=== PATIENT | female | born 1940 | race Caucasian/White ===

== ENCOUNTER 2018-02-22 18:20 | Observation (INO) | payer MEDICARE, BC ==
[2018-02-22] MEDS ORDERED: Albuterol/Ipratropium 3.0-0.5 MG/3 ML Neb Soln NEB ONE (18:55)
[2018-02-22] MEDS ORDERED: methylPREDNISolone Sodium Succinate 125 MG/2 ML SDV IVPUSH ONE (19:22)
[2018-02-22 19:45] LABS: CHLORIDE,CL 99 mmol/L (98-107); SODIUM,NA 134 mmol/L (136-145)
[2018-02-22] MEDS ORDERED: Furosemide 40 MG/4 ML VIAL IV ONE (20:38)
--- NOTE | 2018-02-22 21:14 | EDM.PDOC ---
ED HPI GENERAL MEDICAL PROBLEM - General Chief Complaint: Respiratory Problem Stated Complaint: shortness of breath Time Seen by Provider: 02/22/18 18:41 Source of Information: Reports: Patient History Limitations: Reports: No Limitations - History of Present Illness INITIAL COMMENTS - FREE TEXT/NARRATIVE: Patient brought in with complaints of shortness of breath that started earlier today. SHe has history of a-fib, copd, chf, htn, hypothroidism. She denies chest pain, arm numbness or tingling. No prior [place] or CVA. She denies blood to urine or stool. No headache, no abdominal pain, denies any other complaints today. She gets more short of breath with walking. She smokes 1/2 ppd and has for 60 years. Onset: Today, Sudden Duration: Intermittent Location: Reports: Chest Severity: Moderate Context: Reports: Activity Associated Symptoms: Reports: Shortness of Breath - Related Data Allergies Allergy/AdvReac Type Severity Reaction Status Date / Time naproxen [From Aleve] Allergy Cannot Verified 02/22/18 19:00 Remember Penicillins Allergy Rash Verified 02/22/18 19:00 Sulfa (Sulfonamide Allergy Cannot Verified 02/22/18 19:00 Antibiotics) Remember Home Meds: Home Meds Albuterol [Ventolin HFA] 2 puff INH Q4H PRN 02/22/18 [History] Beclomethasone Dipropionate [Qvar] 2 puff INH BID 02/22/18 [History] Chlorpheniramine Maleate [Chlor-Trimeton] 4 mg PO Q6HR PRN 02/22/18 [History] Cholecalciferol (Vitamin D3) [Vitamin D3] 2,000 unit PO DAILY 02/22/18 [History] Dabigatran Etexilate Mesylate [Pradaxa] 1 cap PO BID 02/22/18 [History] Hydrochlorothiazide 1 tab PO DAILY 02/22/18 [History] Levothyroxine 200 mcg PO ACBREAKFAST 02/22/18 [History] Lisinopril 1 tab PO DAILY 02/22/18 [History] Metoprolol Tartrate 1 tab PO BID 02/22/18 [History] Multivitamins [Tab-A-Mike] 1 tab PO DAILY 02/22/18 [History] Omeprazole 1 cap PO DAILY 02/22/18 [History] Sertraline HCl 25 mg PO DAILY 02/22/18 [History] Simvastatin [Zocor] 10 mg PO BEDTIME 02/22/18 [History] Tiotropium [Spiriva Handihaler] 18 mcg INH DAILY 02/22/18 [History] Past Medical History Cardiovascular History: Reports: Afib, CAD, Heart Valve Replacement, High Cholesterol, Other (See Below) Other Cardiovascular History: Valvular heart disease Respiratory History: Reports: COPD Gastrointestinal History: Reports: Cholelithiasis, GERD, Other (See Below) Other Gastrointestinal History: dysphagia, rectocele Musculoskeletal History: Reports: Other (See Below) Other Musculoskeletal History: Arthralgia of foot Psychiatric History: Reports: Depression Endocrine/Metabolic History: Reports: Hypothyroidism Hematologic History: Reports: B12 Deficiency Oncologic (Cancer) History: Reports: Bladder, Other (See Below) Other Oncologic History: Anal skin Social & Family History - Tobacco Use Smoking Status *Q: Current Every Day Smoker Years of Tobacco use: 60 Packs/Tins Daily: 0.4 - Alcohol Use Days Per Week of Alcohol Use: 7 Number of Drinks Per Day: 3 Total Drinks Per Week: 21 - Recreational Drug Use Recreational Drug Use: No ED ROS GENERAL - Review of Systems Review Of Systems: See Below Constitutional: Reports: No Symptoms HEENT: Reports: No Symptoms Respiratory: Reports: Shortness of Breath Cardiovascular: Reports: No Symptoms Endocrine: Reports: No Symptoms GI/Abdominal: Reports: No Symptoms : Reports: No Symptoms Musculoskeletal: Reports: No Symptoms Skin: Reports: No Symptoms Neurological: Reports: No Symptoms Psychiatric: Reports: No Symptoms Hematologic/Lymphatic: Reports: No Symptoms Immunologic: Reports: No Symptoms ED EXAM, GENERAL - Physical Exam Exam: See Below Free Text/Narrative:: PLEASE USE ER NOTE FOR ADMISSION HISTORY AND PHYSICAL Exam Limited By: No Limitations General Appearance: Alert, WD/WN, No Apparent Distress Eye Exam: Bilateral Eye: EOMI, PERRL Ears: Normal TMs Nose: Normal Inspection, Normal Mucosa, No Blood Throat/Mouth: Normal Inspection, Normal Lips, Normal Teeth, Normal Gums, Normal Oropharynx, Normal Voice, No Airway Compromise Head: Atraumatic, Normocephalic Neck: Normal Inspection, Supple, Non-Tender, Full Range of Motion Respiratory/Chest: No Respiratory Distress, Lungs Clear, Normal Breath Sounds, No Accessory Muscle Use, Chest Non-Tender Cardiovascular: Normal Peripheral Pulses, Regular Rate, Rhythm, No Edema, No Gallop, No JVD, No Murmur, No Rub GI/Abdominal: Normal Bowel Sounds, Soft, Non-Tender, No Organomegaly, No Distention, No Abnormal Bruit, No Mass Back Exam: Normal Inspection, Full Range of Motion, NT Extremities: Normal Inspection, Normal Range of Motion, Non-Tender, Normal Capillary Refill, No Pedal Edema Neurological: Alert, Oriented, CN II-XII Intact, Normal Cognition, Normal Gait, Normal Reflexes, No Motor/Sensory Deficits Psychiatric: Normal Affect, Normal Mood Skin Exam: Warm, Dry, Intact, Normal Color, No Rash Lymphatic: No Adenopathy Course - Vital Signs Last Recorded V/S: Last Vital Signs Temp 36.8 C 02/22/18 21:53 Pulse 92 02/22/18 21:53 Resp 18 02/22/18 21:53 BP 176/90 H 02/22/18 21:53 Pulse Ox 97 02/22/18 21:53 - Orders/Labs/Meds Orders: Active Orders 24 hr Category Date Time Status Patient Status [ADT] Routine ADT 02/22/18 21:19 Active EKG Documentation Completion [RC] ROUTINE Care 02/22/18 18:42 Active RT Aerosol Therapy [RC] ASDIRECTED Care 02/22/18 18:55 Active Chest 1V Frontal [CR] Stat Exams 02/22/18 18:42 Taken Labs: Laboratory Tests 02/22/18 02/22/18 02/22/18 Range/Units 19:09 19:09 19:09 WBC 10.5 H (4.0-10.0) x10^3/uL RBC 3.30 L (4.00-5.50) x10^6/uL Hgb 8.8 L (12.0-16.0) g/dL Hct 29.2 L (33.0-47.0) % MCV 88.5 (78.0-93.0) fL MCH 26.7 (26.0-32.0) pg MCHC 30.1 L (32.0-36.0) g/dL RDW Coeff of Radha 13.7 (10.0-15.0) % Plt Count 395 (130-400) x10^3/uL Neut % (Auto) 78.1 (50.0-80.0) % Lymph % (Auto) 9.9 L (25.0-50.0) % [place] % (Auto) 9.0 (2.0-11.0) % Eos % (Auto) 2.7 (0.0-4.0) % Baso % (Auto) 0.3 (0.2-1.2) % PT 13.5 H (9.8-11.8) SEC INR 1.3 L (2.0-3.5) Sodium 134 L (136-145) mmol/L Potassium 3.0 L (3.5-5.1) mmol/L Chloride 99 (98-107) mmol/L Carbon Dioxide 26 (21-32) mmol/L Anion Gap 12.0 BUN 15 (7-18) mg/dL Creatinine 0.9 (0.55-1.02) mg/dL Est Cr Clr Drug Dosing 40.74 mL/min Estimated GFR (MDRD) > 60 Glucose 112 H (74-106) mg/dL Calcium 8.5 (8.5-10.1) mg/dL Corrected Calcium 8.82 (8.5-10.1) mg/dL Total Bilirubin 0.4 (0.2-1.0) mg/dL AST 11 L (15-37) U/L ALT 13 L (14-59) U/L Alkaline Phosphatase 94 (46-116) U/L Troponin I < 0.017 (<=0.056) ng/mL NT-Pro-B Natriuret Pep 4358 H (<=450) pg/mL Total Protein 6.9 (6.4-8.2) g/dL Albumin 3.6 (3.4-5.0) g/dL Globulin 3.3 Albumin/Globulin Ratio 1.09 TSH, Ultra Sensitive 0.295 L (0.358-3.74) uIU/mL Meds: Medications Discontinued Medications Generic Name Dose Route Start Last Admin Trade Name Freq PRN Reason Stop Dose Admin Albuterol/Ipratropium 3 ml 02/22/18 18:55 02/22/18 18:56 Duoneb 3.0-0.5 Mg/3 Ml NEB 02/22/18 18:56 3 ml ONETIME ONE Administration Furosemide 40 mg 02/22/18 20:38 02/22/18 20:50 Lasix IV 02/22/18 20:39 40 mg ONETIME ONE Administration Methylprednisolone Sodium Succinate 125 mg 02/22/18 19:22 02/22/18 19:32 Solu-Medrol IVPUSH 02/22/18 19:23 125 mg ONETIME ONE Administration Departure - Departure Time of Disposition: 21:45 Disposition: Refer to Observation Condition: Good Clinical Impression: COPD exacerbation, Hypokalemia - Discharge Information ED Communication - Discussed Case With (1) Discussed Case With (1): Other (I did visit with Dr. Bishop, she is going to be admitted as observation. Will treat hypokalemia, heart failure.) - Problem List & Annotations (1) COPD exacerbation SNOMED Code(s): 326008707 Code(s): J44.1 - CHRONIC OBSTRUCTIVE PULMONARY DISEASE W (ACUTE) EXACERBATION Status: Acute Priority: Medium Current Visit: Yes Onset Date: ~02/22/18 Annotation/Comment:: 1. Nebulizer treatments 2. Prednisone treatment 3. Smoking cessation 4. Telemetry 5. Continuous oximetry (2) Hypokalemia SNOMED Code(s): 63200716 Code(s): E87.6 - HYPOKALEMIA Status: Acute Priority: Low Current Visit : Yes Onset Date: ~02/22/18 Annotation/Comment:: Replace with oral KCL Repeat K+ in AM - Problem List Review Problem List Initiated/Reviewed/Updated: Yes - My Orders Last 24 Hours: My Active Orders 02/22/18 18:42 EKG Documentation Completion [RC] ROUTINE Chest 1V Frontal [CR] Stat 02/22/18 18:55 RT Aerosol Therapy [RC] ASDIRECTED 02/22/18 21:19 Patient Status [ADT] Routine - Assessment/Plan Last 24 Hours: My Active Orders 02/22/18 18:42 EKG Documentation Completion [RC] ROUTINE Chest 1V Frontal [CR] Stat 02/22/18 18:55 RT Aerosol Therapy [RC] ASDIRECTED 02/22/18 21:19 Patient Status [ADT] Routine
[2018-02-23] MEDS: Potassium Chloride 20 MEQ Tab.ER PO SCH ×2 (00:13→07:48)
[2018-02-23] MEDS: Albuterol/Ipratropium 3.0-0.5 MG/3 ML Neb Soln NEB SCH ×3 (02:26→10:53)
[2018-02-23] MEDS ORDERED: LEVOTHYROXINE 200 MCG PO SCH (07:00)
[2018-02-23] MEDS ORDERED: Non-Formulary Medication 1 Each (Hydrochlorothiazide [Hydrochlorothiazide] 1 TAB) PO SCH (08:00)
[2018-02-23] MEDS ORDERED: Furosemide 40 MG/4 ML VIAL IV SCH (08:00)
[2018-02-23] MEDS ORDERED: BECLOMETHASONE DIPROPIONATE INH SCH (08:00)
[2018-02-23] MEDS ORDERED: Tiotropium Inhaler 18 MCG Inhalation Powder Cap Kit of 5 INH SCH ×2 (08:00→20:00)
[2018-02-23] MEDS ORDERED: Omeprazole 20 MG Cap.CR PO SCH (08:00)
[2018-02-23] MEDS ORDERED: Sertraline 25 MG Tab PO SCH (08:00)
[2018-02-23] MEDS ORDERED: METOPROLOL TARTRATE PO SCH (08:00)
[2018-02-23] MEDS ORDERED: predniSONE 20 MG Tab PO SCH (08:00)
[2018-02-23] MEDS ORDERED: Nicotine 14 MG/24 Hr Patch TRDERM SCH (08:00)
[2018-02-23] MEDS ORDERED: Levothyroxine 100 MCG Tab PO SCH (08:05)
[2018-02-23] MEDS ORDERED: Metoprolol Tartrate 50 MG Tab PO SCH (08:06)
[2018-02-23] MEDS ORDERED: Hydrochlorothiazide 12.5 MG Cap PO SCH (08:07)
[2018-02-23] MEDS: Lisinopril 5 MG Tab PO SCH ×2 (08:12→08:13)
--- NOTE | 2018-02-23 09:14 | PCM.PN ---
- General Info Date of Service: 02/23/18 Admission Dx/Problem (Free Text): COPD exacerbation Functional Status: Reports: Pain Controlled, Tolerating Diet, Ambulating, Urinating - Review of Systems General: Reports: No Symptoms HEENT: Reports: No Symptoms Pulmonary: Reports: Shortness of Breath, Cough Cardiovascular: Reports: No Symptoms Gastrointestinal: Reports: No Symptoms Genitourinary: Reports: No Symptoms Musculoskeletal: Reports: No Symptoms Skin: Reports: No Symptoms Neurological: Reports: No Symptoms Psychiatric: Reports: No Symptoms - Patient Data Vitals - Most Recent: Last Vital Signs Temp 36.6 C 02/23/18 03:30 Pulse 123 H 02/23/18 08:13 Resp 18 02/23/18 03:30 BP 111/79 02/23/18 08:13 Pulse Ox 98 02/23/18 07:25 Weight - Most Recent: 73.369 kg I&O - Last 24 Hours: Intake & Output 02/22/18 02/23/18 02/23/18 22:59 06:59 14:59 Intake Total 1860 240 Output Total 700 Balance 1160 240 Lab Results Last 24 Hours: Laboratory Results - last 24 hr 02/22/18 02/22/18 02/22/18 Range/Units 19:09 19:09 19:09 WBC 10.5 H (4.0-10.0) x10^3/uL RBC 3.30 L (4.00-5.50) x10^6/uL Hgb 8.8 L (12.0-16.0) g/dL Hct 29.2 L (33.0-47.0) % MCV 88.5 (78.0-93.0) fL MCH 26.7 (26.0-32.0) pg MCHC 30.1 L (32.0-36.0) g/dL RDW Coeff of Radha 13.7 (10.0-15.0) % Plt Count 395 (130-400) x10^3/uL Neut % (Auto) 78.1 (50.0-80.0) % Lymph % (Auto) 9.9 L (25.0-50.0) % [place] % (Auto) 9.0 (2.0-11.0) % Eos % (Auto) 2.7 (0.0-4.0) % Baso % (Auto) 0.3 (0.2-1.2) % PT 13.5 H (9.8-11.8) SEC INR 1.3 L (2.0-3.5) Sodium 134 L (136-145) mmol/L Potassium 3.0 L (3.5-5.1) mmol/L Chloride 99 (98-107) mmol/L Carbon Dioxide 26 (21-32) mmol/L Anion Gap 12.0 BUN 15 (7-18) mg/dL Creatinine 0.9 (0.55-1.02) mg/dL Est Cr Clr Drug Dosing 40.74 mL/min Estimated GFR (MDRD) > 60 Glucose 112 H (74-106) mg/dL Calcium 8.5 (8.5-10.1) mg/dL Corrected Calcium 8.82 (8.5-10.1) mg/dL Total Bilirubin 0.4 (0.2-1.0) mg/dL AST 11 L (15-37) U/L ALT 13 L (14-59) U/L Alkaline Phosphatase 94 (46-116) U/L Troponin I < 0.017 (<=0.056) ng/mL NT-Pro-B Natriuret Pep 4358 H (<=450) pg/mL Total Protein 6.9 (6.4-8.2) g/dL Albumin 3.6 (3.4-5.0) g/dL Globulin 3.3 Albumin/Globulin Ratio 1.09 TSH, Ultra Sensitive 0.295 L (0.358-3.74) uIU/mL 02/23/18 Range/Units 06:25 WBC (4.0-10.0) x10^3/uL RBC (4.00-5.50) x10^6/uL Hgb (12.0-16.0) g/dL Hct (33.0-47.0) % MCV (78.0-93.0) fL MCH (26.0-32.0) pg MCHC (32.0-36.0) g/dL RDW Coeff of Radha (10.0-15.0) % Plt Count (130-400) x10^3/uL Neut % (Auto) (50.0-80.0) % Lymph % (Auto) (25.0-50.0) % [place] % (Auto) (2.0-11.0) % Eos % (Auto) (0.0-4.0) % Baso % (Auto) (0.2-1.2) % PT (9.8-11.8) SEC INR (2.0-3.5) Sodium (136-145) mmol/L Potassium 3.0 L (3.5-5.1) mmol/L Chloride (98-107) mmol/L Carbon Dioxide (21-32) mmol/L Anion Gap BUN (7-18) mg/dL Creatinine (0.55-1.02) mg/dL Est Cr Clr Drug Dosing mL/min Estimated GFR (MDRD) Glucose (74-106) mg/dL Calcium (8.5-10.1) mg/dL Corrected Calcium (8.5-10.1) mg/dL Total Bilirubin (0.2-1.0) mg/dL AST (15-37) U/L ALT (14-59) U/L Alkaline Phosphatase (46-116) U/L Troponin I (<=0.056) ng/mL NT-Pro-B Natriuret Pep (<=450) pg/mL Total Protein (6.4-8.2) g/dL Albumin (3.4-5.0) g/dL Globulin Albumin/Globulin Ratio TSH, Ultra Sensitive (0.358-3.74) uIU/mL Med Orders - Current: Current Medications Albuterol/Ipratropium (Duoneb 3.0-0.5 Mg/3 Ml) 3 ml NEB Q4HRRT [facility] Last Admin: 02/23/18 07:23 Dose: 3 ml Furosemide (Lasix) 40 mg IV BIDDIURETIC [facility] Last Admin: 02/23/18 07:50 Dose: 40 mg Hydrochlorothiazide (Hydrochlorothiazide) 12.5 mg PO DAILY [facility] Last Admin: 02/23/18 08:14 Dose: 12.5 mg Levothyroxine Sodium (Synthroid) 200 mcg PO MoTuWeThFrSa@0700 [facility] Last Admin: 02/23/18 08:14 Dose: 200 mcg Lisinopril (Prinivil) 5 mg PO DAILY [facility] Last Admin: 02/23/18 08:13 Dose: 5 mg Metoprolol Tartrate (Lopressor) 100 mg PO BID [facility] Last Admin: 02/23/18 08:13 Dose: 100 mg Nicotine (Habitrol) 14 mg TRDERM DAILY [facility] Last Admin: 02/23/18 07:49 Dose: Not Given Non-Formulary Medication (Beclomethasone Dipropionate) 2 puff INH BID [facility] Last Admin: 02/23/18 07:49 Dose: Not Given Omeprazole (Omeprazole) 20 mg PO DAILY@0700 [facility] Last Admin: 02/23/18 08:12 Dose: 20 mg Potassium Chloride (Klor-Con M20) 40 meq PO DAILY [facility] Last Admin: 02/23/18 07:48 Dose: 40 meq Prednisone (Prednisone) 40 mg PO WITHBREAKFAST [facility] Last Admin: 02/23/18 07:48 Dose: 40 mg Sertraline HCl (Zoloft) 25 mg PO DAILY [facility] Last Admin: 02/23/18 07:48 Dose: 25 mg Tiotropium [place] (Spiriva Handihaler) 18 mcg INH BEDTIME [facility] Discontinued Medications Albuterol/Ipratropium (Duoneb 3.0-0.5 Mg/3 Ml) 3 ml NEB ONETIME ONE Stop: 02/22/18 18:56 Last Admin: 02/22/18 18:56 Dose: 3 ml Furosemide (Lasix) 40 mg IV ONETIME ONE Stop: 02/22/18 20:39 Last Admin: 02/22/18 20:50 Dose: 40 mg Methylprednisolone Sodium Succinate (Solu-Medrol) 125 mg IVPUSH ONETIME ONE Stop: 02/22/18 19:23 Last Admin: 02/22/18 19:32 Dose: 125 mg Non-Formulary Medication (Hydrochlorothiazide [Hydrochlorothiazide]) 1 tab PO DAILY [facility] Non-Formulary Medication (Levothyroxine) 200 mcg PO MoTuWeThFrSa@0700 [facility] Last Admin: 02/23/18 07:49 Dose: Not Given Non-Formulary Medication (Metoprolol Tartrate) 1 tab PO BID [facility] Tiotropium [place] (Spiriva Handihaler) 18 mcg INH DAILY [facility] - Exam Quality Assessment: Supplemental Oxygen General: Alert, Oriented HEENT: Pupils Equal, Pupils Reactive, EOMI, Mucous Membr. Moist/[place] Lungs: [place] Cardiovascular: Regular Rate, Irregular Rhythm GI/Abdominal Exam: Normal Bowel Sounds, Soft, Non-Tender, No Organomegaly, No Distention, No Abnormal Bruit, No Mass, Pelvis Stable Back Exam: Normal Inspection, Full Range of Motion Extremities: Normal Inspection, Normal Range of Motion, Non-Tender, No Pedal Edema, Normal Capillary Refill Peripheral Pulses: 2+: Posterior Tibial (L), Posterior Tibial (R), Dorsalis Pedis (L), Dorsalis Pedis (R) Skin: Warm, Dry, Intact Neurological: No New Focal Deficit Psy/Mental Status: Alert, Normal Affect, Normal Mood - Problem List & Annotations (1) COPD exacerbation SNOMED Code(s): 360231490 Code(s): J44.1 - CHRONIC OBSTRUCTIVE PULMONARY DISEASE W (ACUTE) EXACERBATION Status: Acute Priority: Medium Current Visit: Yes Onset Date: ~02/22/18 Annotation/Comment:: 1. Nebulizer treatments 2. Prednisone treatment 3. Smoking cessation 4. Telemetry 5. Continuous oximetry (2) Hypokalemia SNOMED Code(s): 49696643 Code(s): E87.6 - HYPOKALEMIA Status: Acute Priority: Low Current Visit : Yes Onset Date: ~02/22/18 Annotation/Comment:: Replace with oral KCL Repeat K+ in AM - Problem List Review Problem List Initiated/Reviewed/Updated: Yes - My Orders Last 24 Hours: My Active Orders 02/22/18 18:42 EKG Documentation Completion [RC] ROUTINE Chest 1V Frontal [CR] Stat 02/22/18 18:55 RT Aerosol Therapy [RC] ASDIRECTED 02/22/18 21:19 Patient Status [ADT] Routine 02/22/18 23:30 Patient Status [ADT] Routine Oxygen Therapy [RC] 08,20 Up With Assistance [RC] 08,20 VTE/DVT Education [RC] PER UNIT ROUTINE Vital Signs [RC] 06,10,14,18,22,02 Resuscitation Status Routine 02/22/18 23:31 Cardiac Monitoring [RC] 06,10,14,18,22,02 Intake and Output [RC] 06,18 Pulse Oximetry [RC] 06,10,14,18,22,02 Sequential Compression Device [OM.PC] Per Unit Routine 02/22/18 23:33 RT Aerosol Therapy [RC] 03,07,11,15,19,23 02/22/18 23:45 Potassium Chloride [Klor-Con M20] 40 meq PO DAILY 02/23/18 03:00 Albuterol/Ipratropium [DuoNeb 3.0-0.5 MG/3 ML] 3 ml NEB Q4HRRT 02/23/18 08:00 Beclomethasone Dipropionate 2 puff INH BID Furosemide [Lasix] 40 mg IV BIDDIURETIC Lisinopril [Prinivil] 5 mg PO DAILY Nicotine [Habitrol] 14 mg TRDERM DAILY Omeprazole 20 mg PO DAILY@0700 Sertraline [Zoloft] 25 mg PO DAILY predniSONE 40 mg PO WITHBREAKFAST 02/23/18 08:05 Levothyroxine [Synthroid] 200 mcg PO MoTuWeThFrSa@0700 02/23/18 08:06 Metoprolol Tartrate [Lopressor] 100 mg PO BID 02/23/18 08:07 Hydrochlorothiazide 12.5 mg PO DAILY 02/23/18 20:00 Tiotropium [Spiriva HandiHaler] 18 mcg INH BEDTIME - Plan Plan:: Continue with current plan. May d/c today if her shortness of breath is improved. To be discharged on medrol dose pack, duoneb nebulized medication.
--- NOTE | 2018-02-23 09:34 | PCM.DCSUM1 ---
Discharge Summary - Hospital Course HPI Initial Comments: Patient came yesterday with complaints of shortness of breath. It was sudden and started yesterday. Admitted for COPD exacerbation. Brief History: Admission yesterday with COPD exacerbation. Chest x-ray did not indicate infection process with COPD seen. Treated with IV steroids, nebulizer , oxygen, lasix, oral potassium. Ambulating today without SOB. - Discharge Data Discharge Date: 02/23/18 Discharge Disposition: Home, Self-Care 01 Condition: Good - Discharge Diagnosis/Problem(s) (1) COPD exacerbation SNOMED Code(s): 735517875 ICD Code: J44.1 - CHRONIC OBSTRUCTIVE PULMONARY DISEASE W (ACUTE) EXACERBATION Status: Acute Priority: Medium Current Visit: Yes Onset Date: ~02/22/18 Problem Details: 1. Nebulizer treatments 2. Prednisone treatment 3. Smoking cessation 4. Telemetry 5. Continuous oximetry (2) Hypokalemia SNOMED Code(s): 17934971 ICD Code: E87.6 - HYPOKALEMIA Status: Acute Priority: Low Current Visit : Yes Onset Date: ~02/22/18 Problem Details: Replace with oral KCL Repeat K+ in AM - Patient Summary/Data Recommended Follow-up Testing/Procedures: Follow up with your primary doctor. Take the medications as prescribed. - Patient Instructions Diet: Usual Diet as Tolerated Activity: As Tolerated Driving: May Drive Today Showering/Bathing: May Shower - Discharge Plan Prescriptions/Med Rec: Albuterol/Ipratropium [DuoNeb 3.0-0.5 MG/3 ML] 3 ml NEB Q4HRRT 30 Days neb Potassium Chloride [Klor-Con M20] 40 meq PO DAILY #20 tab.er Home Medications: Home Meds Albuterol [Ventolin HFA] 2 puff INH Q4H PRN 02/22/18 [History] Beclomethasone Dipropionate [Qvar] 2 puff INH BID 02/22/18 [History] Chlorpheniramine Maleate [Chlor-Trimeton] 4 mg PO Q6HR PRN 02/22/18 [History] Cholecalciferol (Vitamin D3) [Vitamin D3] 2,000 unit PO DAILY 02/22/18 [History] Dabigatran Etexilate Mesylate [Pradaxa] 1 cap PO BID 02/22/18 [History] Hydrochlorothiazide 1 tab PO DAILY 02/22/18 [History] Levothyroxine 200 mcg PO ACBREAKFAST 02/22/18 [History] Lisinopril 1 tab PO DAILY 02/22/18 [History] Metoprolol Tartrate 1 tab PO BID 02/22/18 [History] Multivitamins [Tab-A-Mike] 1 tab PO DAILY 02/22/18 [History] Omeprazole 1 cap PO DAILY 02/22/18 [History] Sertraline HCl 25 mg PO DAILY 02/22/18 [History] Simvastatin [Zocor] 10 mg PO BEDTIME 02/22/18 [History] Tiotropium [Spiriva Handihaler] 18 mcg INH DAILY 02/22/18 [History] Albuterol/Ipratropium [DuoNeb 3.0-0.5 MG/3 ML] 3 ml NEB Q4HRRT 30 Days neb [Rx] Potassium Chloride [Klor-Con M20] 40 meq PO DAILY #20 tab.er 02/23/18 [Rx] Forms: ED Department Discharge Referrals: Maine Espinosa MD [Primary Care Provider] - - Discharge Summary/Plan Comment DC Time >30 min.: Yes - Patient Data Vitals - Most Recent: Last Vital Signs Temp 36.6 C 02/23/18 03:30 Pulse 123 H 02/23/18 08:13 Resp 18 02/23/18 03:30 BP 111/79 02/23/18 08:13 Pulse Ox 98 02/23/18 07:25 Weight - Most Recent: 73.369 kg I&O - Last 24 hours: Intake & Output 02/22/18 02/23/18 02/23/18 22:59 06:59 14:59 Intake Total 1860 240 Output Total 700 Balance 1160 240 Lab Results - Last 24 hrs: Laboratory Results - last 24 hr 02/22/18 02/22/18 02/22/18 Range/Units 19:09 19:09 19:09 WBC 10.5 H (4.0-10.0) x10^3/uL RBC 3.30 L (4.00-5.50) x10^6/uL Hgb 8.8 L (12.0-16.0) g/dL Hct 29.2 L (33.0-47.0) % MCV 88.5 (78.0-93.0) fL MCH 26.7 (26.0-32.0) pg MCHC 30.1 L (32.0-36.0) g/dL RDW Coeff of Radha 13.7 (10.0-15.0) % Plt Count 395 (130-400) x10^3/uL Neut % (Auto) 78.1 (50.0-80.0) % Lymph % (Auto) 9.9 L (25.0-50.0) % [place] % (Auto) 9.0 (2.0-11.0) % Eos % (Auto) 2.7 (0.0-4.0) % Baso % (Auto) 0.3 (0.2-1.2) % PT 13.5 H (9.8-11.8) SEC INR 1.3 L (2.0-3.5) Sodium 134 L (136-145) mmol/L Potassium 3.0 L (3.5-5.1) mmol/L Chloride 99 (98-107) mmol/L Carbon Dioxide 26 (21-32) mmol/L Anion Gap 12.0 BUN 15 (7-18) mg/dL Creatinine 0.9 (0.55-1.02) mg/dL Est Cr Clr Drug Dosing 40.74 mL/min Estimated GFR (MDRD) > 60 Glucose 112 H (74-106) mg/dL Calcium 8.5 (8.5-10.1) mg/dL Corrected Calcium 8.82 (8.5-10.1) mg/dL Total Bilirubin 0.4 (0.2-1.0) mg/dL AST 11 L (15-37) U/L ALT 13 L (14-59) U/L Alkaline Phosphatase 94 (46-116) U/L Troponin I < 0.017 (<=0.056) ng/mL NT-Pro-B Natriuret Pep 4358 H (<=450) pg/mL Total Protein 6.9 (6.4-8.2) g/dL Albumin 3.6 (3.4-5.0) g/dL Globulin 3.3 Albumin/Globulin Ratio 1.09 TSH, Ultra Sensitive 0.295 L (0.358-3.74) uIU/mL 02/23/18 Range/Units 06:25 WBC (4.0-10.0) x10^3/uL RBC (4.00-5.50) x10^6/uL Hgb (12.0-16.0) g/dL Hct (33.0-47.0) % MCV (78.0-93.0) fL MCH (26.0-32.0) pg MCHC (32.0-36.0) g/dL RDW Coeff of Radha (10.0-15.0) % Plt Count (130-400) x10^3/uL Neut % (Auto) (50.0-80.0) % Lymph % (Auto) (25.0-50.0) % [place] % (Auto) (2.0-11.0) % Eos % (Auto) (0.0-4.0) % Baso % (Auto) (0.2-1.2) % PT (9.8-11.8) SEC INR (2.0-3.5) Sodium (136-145) mmol/L Potassium 3.0 L (3.5-5.1) mmol/L Chloride (98-107) mmol/L Carbon Dioxide (21-32) mmol/L Anion Gap BUN (7-18) mg/dL Creatinine (0.55-1.02) mg/dL Est Cr Clr Drug Dosing mL/min Estimated GFR (MDRD) Glucose (74-106) mg/dL Calcium (8.5-10.1) mg/dL Corrected Calcium (8.5-10.1) mg/dL Total Bilirubin (0.2-1.0) mg/dL AST (15-37) U/L ALT (14-59) U/L Alkaline Phosphatase (46-116) U/L Troponin I (<=0.056) ng/mL NT-Pro-B Natriuret Pep (<=450) pg/mL Total Protein (6.4-8.2) g/dL Albumin (3.4-5.0) g/dL Globulin Albumin/Globulin Ratio TSH, Ultra Sensitive (0.358-3.74) uIU/mL Med Orders - Current: Current Medications Albuterol/Ipratropium (Duoneb 3.0-0.5 Mg/3 Ml) 3 ml NEB Q4HRRT [facility] Last Admin: 02/23/18 07:23 Dose: 3 ml Furosemide (Lasix) 40 mg IV BIDDIURETIC [facility] Last Admin: 02/23/18 07:50 Dose: 40 mg Hydrochlorothiazide (Hydrochlorothiazide) 12.5 mg PO DAILY [facility] Last Admin: 02/23/18 08:14 Dose: 12.5 mg Levothyroxine Sodium (Synthroid) 200 mcg PO MoTuWeThFrSa@0700 [facility] Last Admin: 02/23/18 08:14 Dose: 200 mcg Lisinopril (Prinivil) 5 mg PO DAILY [facility] Last Admin: 02/23/18 08:13 Dose: 5 mg Metoprolol Tartrate (Lopressor) 100 mg PO BID [facility] Last Admin: 02/23/18 08:13 Dose: 100 mg Nicotine (Habitrol) 14 mg TRDERM DAILY [facility] Last Admin: 02/23/18 07:49 Dose: Not Given Non-Formulary Medication (Beclomethasone Dipropionate) 2 puff INH BID [facility] Last Admin: 02/23/18 07:49 Dose: Not Given Omeprazole (Omeprazole) 20 mg PO DAILY@0700 [facility] Last Admin: 02/23/18 08:12 Dose: 20 mg Potassium Chloride (Klor-Con M20) 40 meq PO DAILY [facility] Last Admin: 02/23/18 07:48 Dose: 40 meq Prednisone (Prednisone) 40 mg PO WITHBREAKFAST [facility] Last Admin: 02/23/18 07:48 Dose: 40 mg Sertraline HCl (Zoloft) 25 mg PO DAILY [facility] Last Admin: 02/23/18 07:48 Dose: 25 mg Tiotropium [place] (Spiriva Handihaler) 18 mcg INH BEDTIME [facility] Discontinued Medications Albuterol/Ipratropium (Duoneb 3.0-0.5 Mg/3 Ml) 3 ml NEB ONETIME ONE Stop: 02/22/18 18:56 Last Admin: 02/22/18 18:56 Dose: 3 ml Furosemide (Lasix) 40 mg IV ONETIME ONE Stop: 02/22/18 20:39 Last Admin: 02/22/18 20:50 Dose: 40 mg Methylprednisolone Sodium Succinate (Solu-Medrol) 125 mg IVPUSH ONETIME ONE Stop: 02/22/18 19:23 Last Admin: 02/22/18 19:32 Dose: 125 mg Non-Formulary Medication (Hydrochlorothiazide [Hydrochlorothiazide]) 1 tab PO DAILY [facility] Last Admin: 02/23/18 09:25 Dose: Not Given Non-Formulary Medication (Levothyroxine) 200 mcg PO MoTuWeThFrSa@0700 [facility] Last Admin: 02/23/18 07:49 Dose: Not Given Non-Formulary Medication (Metoprolol Tartrate) 1 tab PO BID [facility] Last Admin: 02/23/18 09:25 Dose: Not Given Tiotropium [place] (Spiriva Handihaler) 18 mcg INH DAILY [facility] Last Admin: 02/23/18 09:25 Dose: Not Given
== END 2018-02-23 12:30 | disposition home or self-care (01) ==
LOC: VM.ED 18:20 → VM.MS 21:19 → UNDOADMOB 21:23
PROVIDERS: ADMIT Nurse Practitioner Family; ATTEND Nurse Practitioner Family
DX: J44.1 Chronic obstructive pulmonary disease with (acute) exacerbation (principal); E87.6 Hypokalemia; I25.10 Atherosclerotic heart disease of native coronary artery without angina pectoris; E78.00 Pure hypercholesterolemia, unspecified; I48.91 Unspecified atrial fibrillation; K21.9 Gastro-esophageal reflux disease without esophagitis; F32.9 Major depressive disorder, single episode, unspecified; E03.9 Hypothyroidism, unspecified; Z95.2 Presence of prosthetic heart valve; Z79.899 Other long term (current) drug therapy; Z88.0 Allergy status to penicillin; Z88.2 Allergy status to sulfonamides; Z88.8 Allergy status to other drugs, medicaments and biological substances; F17.210 Nicotine dependence, cigarettes, uncomplicated
CPT/HCPCS: 36415; 71045; 80053; 83880; 84132; 84443; 84484; 85025; 85610; 93005; 94640; 94760; 96374; 96375; 96376; 99217; 99220; 99284-GF; 99285; A9270-GY; G0378; J1940; J2930

== ENCOUNTER 2020-09-28 20:32 | Observation (INO) | payer MEDICARE, BC ==
[2020-09-28] MEDS ORDERED: Sodium Chloride 0.9% 10 ML Syringe FLUSH PRN (20:40)
[2020-09-28] MEDS ORDERED: Morphine 4 MG/ML Syringe IVPUSH ONE (20:41)
[2020-09-28] MEDS ORDERED: Ondansetron 4 MG/2 ML SDV IVPUSH ONE (20:41)
--- NOTE | 2020-09-28 20:47 | EDM.PDOC ---
<Richard Zelaya - Last Filed: 09/28/20 21:52> ED HPI GENERAL MEDICAL PROBLEM - General Stated Complaint: fall left hip pain. Time Seen by Provider: 09/28/20 20:32 Source of Information: Reports: Patient History Limitations: Reports: No Limitations - History of Present Illness INITIAL COMMENTS - FREE TEXT/NARRATIVE: Patient comes emergency department today from home by ambulance with complaints of a fall and a left hip pain. Just prior to contacting the ambulance the patient was ambulating when she turned suddenly lost her balance and fell landing on her left hip. She did not hit her head. There was no loss of consciousness. She denies any head neck or back pain. She denies any symptoms prior to the fall such as palpitations weakness dizziness lightheadedness. She complains of pain to her left hip. She was given some morphine prior to arrival. She has no chest pain shortness of breath or difficulty breathing. No fever no chills. No abdominal pain no nausea or vomiting. She denies any paresthesias to her lower extremity. She only complains of pain to her left hip. No Covid exposure no Covid symptoms. - Related Data Allergies Allergy/AdvReac Type Severity Reaction Status Date / Time naproxen [From Aleve] Allergy Cannot Verified 09/28/20 20:51 Remember Penicillins Allergy Rash Verified 09/28/20 20:51 Sulfa (Sulfonamide Allergy Cannot Verified 09/28/20 20:51 Antibiotics) Remember Home Meds: Home Meds Albuterol [Ventolin HFA] 2 puff INH Q4H PRN 02/22/18 [History] Chlorpheniramine Maleate [Chlor-Trimeton] 4 mg PO Q6HR PRN 02/22/18 [History] Dabigatran Etexilate Mesylate [Pradaxa] 1 cap PO BID 02/22/18 [History] Levothyroxine 150 mcg PO ACBREAKFAST 02/22/18 [History] Lisinopril 1 tab PO DAILY 02/22/18 [History] Metoprolol Tartrate 1 tab PO BID 02/22/18 [History] Multivitamins [Tab-A-Mike] 1 tab PO DAILY 02/22/18 [History] Omeprazole 1 cap PO DAILY 02/22/18 [History] Simvastatin [Zocor] 10 mg PO BEDTIME 02/22/18 [History] Aspirin 81 mg PO WITHBREAKFAST #90 tab.chew 10/06/18 [Rx] ALPRAZolam [Xanax] 0.25 mg PO BID PRN 09/28/20 [History] Acetaminophen [Tylenol] 650 mg PO Q4H PRN 09/28/20 [History] Azelastine [Optivar 0.05% Ophth Soln] 6 ml .XX BID 09/28/20 [History] Calcium Carbonate [Tums] 500 mg PO QID PRN 09/28/20 [History] Cyanocobalamin (Vitamin B-12) [Vitamin B-12] 1,000 mcg PO DAILY 09/28/20 [History] Escitalopram Oxalate 1 tab PO DAILY 09/28/20 [History] Escitalopram Oxalate 1 tab PO DAILY 09/28/20 [History] Furosemide 40 mg PO DAILY 09/28/20 [History] Nitroglycerin [Nitrostat] 0.4 mg SL ASDIRECTED PRN 09/28/20 [History] Past Medical History HEENT History: Reports: Allergic Rhinitis Cardiovascular History: Reports: Afib, CAD, Heart Valve Replacement, High Cholesterol, Other (See Below) Other Cardiovascular History: Valvular heart disease Respiratory History: Reports: COPD Gastrointestinal History: Reports: Cholelithiasis, GERD, Other (See Below) Other Gastrointestinal History: dysphagia, rectocele Genitourinary History: Reports: Other (See Below) Other Genitourinary History: malignant neoplasm of bladder unspecified Musculoskeletal History: Reports: Other (See Below) Other Musculoskeletal History: Arthralgia of foot Psychiatric History: Reports: Depression Endocrine/Metabolic History: Reports: Hypothyroidism Hematologic History: Reports: B12 Deficiency Oncologic (Cancer) History: Reports: Bladder, Other (See Below) Other Oncologic History: Anal skin - Past Surgical History Oncologic Surgical History: Reports: Other (See Below) Other Oncologic Surgeries/Procedures: 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 Social & Family History - Family History HEENT: Reports: None Cardiac: Reports: Hypertension (Son hypertension), Other (See Below) (Mother of a stroke, father heart disease and a stroke, sister current pacemaker, sun hypertension) Respiratory: Reports: None GI: Reports: Hiatal Hernia (Mother had hiatal hernia) : Reports: None OBGYN: Reports: None Musculoskeletal: Reports: None Neurological: Reports: None Psychiatric: Reports: None Endocrine/Metabolic: Reports: None Hematologic: Reports: None Immunologic: Reports: None Dermatologic: Reports: None Oncologic: Reports: Other (See Below) (Son alive, with ALL) - Caffeine Use Caffeine Use: Reports: Coffee Review of Systems - Review of Systems Review Of Systems: Comprehensive ROS is negative, except as noted in HPI. ED EXAM, GENERAL - Physical Exam Exam: See Below Exam Limited By: No Limitations General Appearance: Alert, WD/WN, No Apparent Distress Eye Exam: Bilateral Eye: EOMI, PERRL Ears: Normal External Exam, Normal TMs Nose: Normal Inspection, Normal Mucosa Throat/Mouth: Normal Inspection, Normal Lips, Normal Teeth, Normal Oropharynx, Normal Voice, No Airway Compromise Head: Atraumatic, Normocephalic Neck: Normal Inspection, Supple, Non-Tender, Full Range of Motion. No: Tender Lateral, Tender Midline Respiratory/Chest: No Respiratory Distress, Lungs Clear, Normal Breath Sounds, No Accessory Muscle Use, Chest Non-Tender Cardiovascular: Normal Peripheral Pulses, Regular Rate, Rhythm Peripheral Pulses: 2+: Radial (L), Radial (R), Posterior Tibial (L), Posterior Tibial (R), Dorsalis Pedis (L), Dorsalis Pedis (R) GI/Abdominal: Normal Bowel Sounds, Soft, Pelvis Stable (Pelvis is stable although she has tenderness to the left hip greater trochanter region.) (Female) Exam: Deferred Rectal (Female) Exam: Deferred Back Exam: Normal Inspection, Full Range of Motion. No: Paraspinal Tenderness, Vertebral Tenderness Extremities: Non-Tender, Normal Capillary Refill. No: Normal Inspection (Tenderness to the left greater trochanter region. No gross deformity. There is no shortening or external rotation of the left lower extremity. The rest of the extremities are atraumatic and unremarkable.) Neurological: Alert, Oriented, Normal Cognition, No Motor/Sensory Deficits Psychiatric: Normal Affect, Normal Mood Skin Exam: Warm, Dry, Intact, Normal Color, No Rash Course - Re-Assessments/Exams Free Text/Narrative Re-Assessment/Exam: 09/28/20 20:47 Patient was given 4 mg of an IV push. Morphine 4 mg IV push. The trauma team was activated prior to the patient's arrival and was present upon the patient's arrival. Labs are drawn. 09/28/20 21:52 X-ray per radiology of the left hip shows an acute fracture of the subcapital left femur. Patient is still quite uncomfortable in pain. She was given a milligram of Dilaudid IV push. I called and spoke with [facility] [facility] in [place] they do not have any beds available. I spoke with the [facility] in [place] they do not have any beds available. I have also reached out to [facility] to see if they have any beds available and I am waiting on a response from them. Her laboratory evaluation is rather unr emarkable. Her care at this time due to shift change will be transferred to [facility]. Departure - Departure Disposition: Refer to Observation Clinical Impression: Hip fracture, left Qualifiers: Encounter type: initial encounter Fracture type: closed Qualified Code(s): S72.002A - Fracture of unspecified part of neck of left femur, initial encounter for closed fracture - Discharge Information <Patti Myers - Last Filed: 09/28/20 22:55> ED EXAM, GENERAL - Physical Exam Exam: See Below Exam Limited By: No Limitations General Appearance: Alert, WD/WN, No Apparent Distress Eye Exam: Bilateral Eye: EOMI, PERRL Ears: Normal External Exam Throat/Mouth: Normal Inspection, Normal Lips, Normal Teeth, Normal Gums, Normal Voice Head: Atraumatic, Normocephalic Neck: Normal Inspection, Supple, Non-Tender, Full Range of Motion Respiratory/Chest: No Respiratory Distress, Lungs Clear, Normal Breath Sounds, No Accessory Muscle Use, Chest Non-Tender Cardiovascular: Normal Peripheral Pulses, Regular Rate, Rhythm GI/Abdominal: Normal Bowel Sounds, Soft, Pelvis Stable (Female) Exam: Deferred Rectal (Female) Exam: Deferred Back Exam: Normal Inspection, Full Range of Motion. No: Muscle Spasm, Wale kathrine Tenderness, Vertebral Tenderness Extremities: Non-Tender, Normal Capillary Refill Neurological: Alert, Oriented, Normal Cognition, No Motor/Sensory Deficits. No: Normal Gait Psychiatric: Normal Affect, Normal Mood Skin Exam: Warm, Dry, Intact, Normal Color, No Rash Course - Orders/Labs/Meds Orders: Active Orders 24 hr Category Date Time Status Hip Min 2V or 3V w Pelvis Lt [CR] Stat Exams 09/28/20 20:40 Taken Sodium Chloride 0.9% [Saline Flush] Med 09/28/20 20:40 Active 10 ml FLUSH ASDIRECTED PRN Peripheral IV Insertion Adult [OM.PC] Stat Oth 09/28/20 20:40 Ordered Medication Orders Sodium Chloride (Saline Flush) 10 ml FLUSH ASDIRECTED PRN PRN Reason: Keep Vein Open Last Admin: 09/28/20 21:54 Dose: 10 ml Documented by: CLARENCE Labs: Laboratory Tests 09/28/20 09/28/20 09/28/20 Range/Units 20:45 20:45 20:45 WBC 7.2 (4.0-10.0) x10^3/uL RBC 3.55 L (4.00-5.50) x10^6/uL Hgb 12.9 D (12.0-16.0) g/dL Hct 37.7 (33.0-47.0) % MCV 106.2 H D (78.0-93.0) fL MCH 36.3 H (26.0-32.0) pg MCHC 34.2 (32.0-36.0) g/dL RDW Coeff of Radha 11.4 (10.0-15.0) % Plt Count 268 D (130-400) x10^3/uL Neut % (Auto) 64.7 (50.0-80.0) % Lymph % (Auto) 27.0 (25.0-50.0) % [place] % (Auto) 6.2 (2.0-11.0) % Eos % (Auto) 1.7 (0.0-4.0) % Baso % (Auto) 0.4 (0.2-1.2) % PT 11.4 (9.5-12.3) SEC INR 1.1 L (2.0-3.5) APTT 31.1 (25.6-32.8) SEC Sodium 137 (136-145) mmol/L Potassium 3.5 (3.5-5.1) mmol/L Chloride 100 (98-107) mmol/L Carbon Dioxide 27 (21-32) mmol/L Anion Gap 13.5 (10-20) mmol/L BUN 15 (7-18) mg/dL Creatinine 0.9 (0.55-1.02) mg/dL Est Cr Clr Drug Dosing TNP Estimated GFR (MDRD) > 60 Glucose 97 (74-106) mg/dL Calcium 8.0 L (8.5-10.1) mg/dL Corrected Calcium 8.32 L (8.5-10.1) mg/dL Total Bilirubin 0.4 (0.2-1.0) mg/dL AST 19 (15-37) U/L ALT 23 (14-59) U/L Alkaline Phosphatase 76 (46-116) U/L Total Protein 6.6 (6.4-8.2) g/dL Albumin 3.6 (3.4-5.0) g/dL Globulin 3.0 Albumin/Globulin Ratio 1.20 SARS CoV-2 RNA Rapid ASHLYN (NEGATIVE) 09/28/20 Range/Units 21:20 WBC (4.0-10.0) x10^3/uL RBC (4.00-5.50) x10^6/uL Hgb (12.0-16.0) g/dL Hct (33.0-47.0) % MCV (78.0-93.0) fL MCH (26.0-32.0) pg MCHC (32.0-36.0) g/dL RDW Coeff of Radha (10.0-15.0) % Plt Count (130-400) x10^3/uL Neut % (Auto) (50.0-80.0) % Lymph % (Auto) (25.0-50.0) % [place] % (Auto) (2.0-11.0) % Eos % (Auto) (0.0-4.0) % Baso % (Auto) (0.2-1.2) % PT (9.5-12.3) SEC INR (2.0-3.5) APTT (25.6-32.8) SEC Sodium (136-145) mmol/L Potassium (3.5-5.1) mmol/L Chloride (98-107) mmol/L Carbon Dioxide (21-32) mmol/L Anion Gap (10-20) mmol/L BUN (7-18) mg/dL Creatinine (0.55-1.02) mg/dL Est Cr Clr Drug Dosing Estimated GFR (MDRD) Glucose (74-106) mg/dL Calcium (8.5-10.1) mg/dL Corrected Calcium (8.5-10.1) mg/dL Total Bilirubin (0.2-1.0) mg/dL AST (15-37) U/L ALT (14-59) U/L Alkaline Phosphatase (46-116) U/L Total Protein (6.4-8.2) g/dL Albumin (3.4-5.0) g/dL Globulin Albumin/Globulin Ratio SARS CoV-2 RNA Rapid ASHLYN Negative (NEGATIVE) Meds: Medications Generic Name Dose Route Start Last Admin Trade Name Freq PRN Reason Stop Dose Admin Sodium Chloride 10 ml 09/28/20 20:40 09/28/20 21:54 Saline Flush FLUSH 10 ml ASDIRECTED PRN Administration Keep Vein Open Discontinued Medications Generic Name Dose Route Start Last Admin Trade Name Freq PRN Reason Stop Dose Admin Hydromorphone HCl 1 mg 09/28/20 21:43 09/28/20 21:55 Dilaudid IV 09/28/20 21:44 1 mg ONETIME ONE Administration Morphine Sulfate 4 mg 09/28/20 20:41 09/28/20 20:47 Morphine IVPUSH 09/28/20 20:42 4 mg ONETIME ONE Administration Ondansetron HCl 4 mg 09/28/20 20:41 09/28/20 20:47 Zofran IVPUSH 09/28/20 20:42 4 mg ONETIME ONE Administration Departure - Departure Time of Disposition: 22:50 Condition: Fair - Discharge Information *PRESCRIPTION DRUG MONITORING PROGRAM REVIEWED*: Not Applicable *COPY OF PRESCRIPTION DRUG MONITORING REPORT IN PATIENT TIFFANIE: Not Applicable - Assessment/Plan Admission H&P: Please use this note as an admission H&P Assessment:: 1. left hip fracture Plan: 1. Assumed care from Wallace Zelaya NP who was awaiting to hear potential surgical placement availability in [place] following the patients diagnosis of a left hip fracture that occurred earlier in the evening. See above notes completed by Wallace Zelaya NP regarding specifics. [facility] was unable to assume care. [facility] called back at [phone] and would be able to provide surgical care on 09/29. They will call in the am after admin team approves transfer. Patient will be admitted observation status to control pain and wait surgical services at a higher level of care.
[2020-09-28 21:11] LABS: PTT,PARTIAL THROMBOPLSTIN TIME 31.1 SEC (25.6-32.8)
[2020-09-28 21:14] LABS: CHLORIDE,CL 100 mmol/L (98-107); SODIUM,NA 137 mmol/L (136-145)
[2020-09-28 21:17] LABS: ANION GAP 13.5 mmol/L (10-20)
[2020-09-28] MEDS ORDERED: HYDROmorphone 0.5 MG/0.5 ML Syringe IV ONE (21:43)
[2020-09-28] MEDS ORDERED: Ondansetron 4 MG/2 ML SDV IV PRN (23:01)
[2020-09-28] MEDS ORDERED: Sodium Chloride 0.9% 1,000 ML IV SCH (23:15)
[2020-09-29] MEDS: HYDROmorphone 0.5 MG/0.5 ML Syringe IVPUSH PRN ×2 (00:31→04:14)
[2020-09-29] MEDS: HYDROmorphone 1 MG/ML Syringe IVPUSH PRN ×3 (06:18→13:15)
[2020-09-29 07:23] LABS: PTT,PARTIAL THROMBOPLSTIN TIME 35.2 SEC (25.6-32.8)
[2020-09-29 07:36] LABS: CHLORIDE,CL 101 mmol/L (98-107); SODIUM,NA 137 mmol/L (136-145)
--- NOTE | 2020-09-29 07:36 | CR ---
[id number] RAD/RAD Pelvis 1V W 2V Left Hip EXAM: RAD Pelvis 1V W 2V Left Hip INDICATION: FALL LEFT HIP PAIN COMPARISON: September 25, 2019. FINDINGS: There is an acute left femoral neck fracture with significant displacement and foreshortening. Partially imaged bipolar right hip prosthesis. Arterial calcifications. Lower lumbar spondylosis. IMPRESSION: 1. Acute displaced left femoral neck fracture. Moncho Miguel MD 09/29/20 0735 Thank you for allowing us to participate in the care of your patient.
[2020-09-29 07:45] LABS: ANION GAP 10.7 mmol/L (10-20)
[2020-09-29] MEDS ORDERED: Albuterol 0.083% 2.5 MG/3 ML Neb Soln NEB PRN (07:49)
[2020-09-29] MEDS ORDERED: Albuterol 0.083% 2.5 MG/3 ML Neb Soln ONE (08:00)
--- NOTE | 2020-09-29 12:23 | PCM.DCSUM1 ---
Discharge Summary - Hospital Course HPI Initial Comments: Patient was admitted to the hospital on 09/28/2020 for observation/holding while awaiting bed placement for surgical intervention at [facility]. Patient has remained stable with pain under control with IV pain management. Patient has remained NPO with IV hydration. A Hendrix catheter was placed late last evening due to the severe pain when the patient was moving to be placed on the bed pain. Patient states she slept well last night and has not had any major concerns or complaints. Patient was updated regarding the delay and waiting for an open bed. Family was updated regarding status by nursing personnel. All questions and concerns addressed with the patient while completing rounds. Diagnosis: Stroke: No Modified [place] Scale: No Symptoms at All Modified [place] Scale Score: 0 - Discharge Data Discharge Date: 09/29/20 Discharge Disposition: Home, Self-Care 01 Condition: Good - Referral to Home Health Primary Care Physician: Maine Espinosa MD - Discharge Diagnosis/Problem(s) (1) Hip fracture, left SNOMED Code(s): 162734102, [id number] ICD Code: S72.002A - FRACTURE OF UNSP PART OF NECK OF LEFT FEMUR, INIT Status: Acute Current Visit: Yes Qualifiers: Encounter type: initial encounter Fracture type: closed Qualified Code(s): S72.002A - Fracture of unspecified part of neck of left femur, initial encounter for closed fracture - Patient Instructions Diet: NPO Activity: Bedrest, Non Weight Bearing - Discharge Plan *PRESCRIPTION DRUG MONITORING PROGRAM REVIEWED*: Not Applicable *COPY OF PRESCRIPTION DRUG MONITORING REPORT IN PATIENT TIFFANIE: Not Applicable Home Medications: Home Meds Albuterol [Ventolin HFA] 2 puff INH Q4H 02/22/18 [History] Chlorpheniramine Maleate [Chlor-Trimeton] 4 mg PO Q6HR PRN 02/22/18 [History] Dabigatran Etexilate Mesylate [Pradaxa] 1 cap PO BID 02/22/18 [History] Levothyroxine 150 mcg PO ACBREAKFAST 02/22/18 [History] Lisinopril 1 tab PO DAILY 02/22/18 [History] Metoprolol Tartrate 1 tab PO BID 02/22/18 [History] Multivitamins [Tab-A-Mike] 1 tab PO DAILY 04/15/18 [History] Omeprazole 1 cap PO DAILY 02/22/18 [History] Simvastatin [Zocor] 10 mg PO BEDTIME 02/22/18 [History] Aspirin 81 mg PO WITHBREAKFAST #90 tab.chew 10/06/18 [Rx] ALPRAZolam [Xanax] 0.25 mg PO BID PRN 09/28/20 [History] Acetaminophen [Tylenol] 650 mg PO Q4H PRN 09/28/20 [History] Calcium Carbonate [Tums] 500 mg PO QID PRN 09/28/20 [History] Cyanocobalamin (Vitamin B-12) [Vitamin B-12] 1,000 mcg PO DAILY 09/28/20 [History] Escitalopram Oxalate 1 tab PO DAILY 09/28/20 [History] Furosemide 40 mg PO DAILY 09/28/20 [History] Nitroglycerin [Nitrostat] 0.4 mg SL ASDIRECTED PRN 09/28/20 [History] Azelastine HCl 1 spray NASBOTH Q12HR 09/29/20 [History] Non-Formulary Medication [NF Drug] 1 puff INH DAILY 09/29/20 [History] Oxygen Therapy Mode: Nasal Cannula Forms: ED Department Discharge Referrals: Maine Espinosa MD [Primary Care Provider] - - Discharge Summary/Plan Comment DC Time >30 min.: Yes (Multiple conversation regarding possible transfer to higher level of care ) Discharge Summary/Plan Comment: 1. Awaiting bed placement for surgical intervention 2. IV Normal saline 75ml/hr for hydration. Pt was at 125ml/hr but reduced to prevent cardiac overload 3. Continue IV medications hourly/PRN for hip discomfort 4. Patient to remain NPO for surgery prep 5. Hendrix will remain in place 6. Patient will be transferred via ambulance for surgical intervention and medical management of the hip fracture 7. Family updated per nursing personnel 8. All questions and concerns addressed prior to discharge. - General Info Date of Service: 09/29/20 Admission Dx/Problem (Free Text: left hip fracture Functional Status: Reports: Pain Controlled - Review of Systems General: Reports: No Symptoms HEENT: Reports: No Symptoms Pulmonary: Reports: No Symptoms Cardiovascular: Reports: No Symptoms Gastrointestinal: Reports: No Symptoms Genitourinary: Reports: No Symptoms Musculoskeletal: Reports: No Symptoms Skin: Reports: No Symptoms Neurological: Reports: No Symptoms Psychiatric: Reports: No Symptoms - Patient Data Vitals - Most Recent: Last Vital Signs Temp 37.2 C 09/29/20 10:15 Pulse 89 09/29/20 10:15 Resp 16 09/29/20 10:15 BP 140/80 09/29/20 10:15 Pulse Ox 93 L 09/29/20 10:15 Weight - Most Recent: 67.948 kg I&O - Last 24 hours: Intake & Output 09/28/20 09/29/20 09/29/20 22:59 06:59 14:59 Intake Total 732 0 Output Total 650 Balance 82 0 Lab Results - Last 24 hrs: Laboratory Results - last 24 hr 09/28/20 09/28/20 09/28/20 Range/Units 20:45 20:45 20:45 WBC 7.2 (4.0-10.0) x10^3/uL RBC 3.55 L (4.00-5.50) x10^6/uL Hgb 12.9 D (12.0-16.0) g/dL Hct 37.7 (33.0-47.0) % MCV 106.2 H D (78.0-93.0) fL MCH 36.3 H (26.0-32.0) pg MCHC 34.2 (32.0-36.0) g/dL RDW Coeff of Radha 11.4 (10.0-15.0) % Plt Count 268 D (130-400) x10^3/uL Neut % (Auto) 64.7 (50.0-80.0) % Lymph % (Auto) 27.0 (25.0-50.0) % Cochran % (Auto) 6.2 (2.0-11.0) % Eos % (Auto) 1.7 (0.0-4.0) % Baso % (Auto) 0.4 (0.2-1.2) % PT 11.4 (9.5-12.3) SEC INR 1.1 L (2.0-3.5) APTT 31.1 (25.6-32.8) SEC Sodium 137 (136-145) mmol/L Potassium 3.5 (3.5-5.1) mmol/L Chloride 100 (98-107) mmol/L Carbon Dioxide 27 (21-32) mmol/L Anion Gap 13.5 (10-20) mmol/L BUN 15 (7-18) mg/dL Creatinine 0.9 (0.55-1.02) mg/dL Est Cr Clr Drug Dosing TNP Estimated GFR (MDRD) > 60 Glucose 97 (74-106) mg/dL Calcium 8.0 L (8.5-10.1) mg/dL Corrected Calcium 8.32 L (8.5-10.1) mg/dL Total Bilirubin 0.4 (0.2-1.0) mg/dL AST 19 (15-37) U/L ALT 23 (14-59) U/L Alkaline Phosphatase 76 (46-116) U/L Total Protein 6.6 (6.4-8.2) g/dL Albumin 3.6 (3.4-5.0) g/dL Globulin 3.0 Albumin/Globulin Ratio 1.20 SARS CoV-2 RNA Rapid ASHLYN (NEGATIVE) 09/28/20 09/29/20 09/29/20 Range/Units 21:20 06:30 06:30 WBC 8.4 (4.0-10.0) x10^3/uL RBC 3.49 L (4.00-5.50) x10^6/uL Hgb 12.6 (12.0-16.0) g/dL Hct 37.5 (33.0-47.0) % MCV 107.4 H (78.0-93.0) fL MCH 36.1 H (26.0-32.0) pg MCHC 33.6 (32.0-36.0) g/dL RDW Coeff of Radha 11.5 (10.0-15.0) % Plt Count 254 (130-400) x10^3/uL Neut % (Auto) 69.1 (50.0-80.0) % Lymph % (Auto) 18.0 L (25.0-50.0) % Cochran % (Auto) 11.5 H (2.0-11.0) % Eos % (Auto) 1.0 (0.0-4.0) % Baso % (Auto) 0.4 (0.2-1.2) % PT 10.9 (9.5-12.3) SEC INR 1.0 L (2.0-3.5) APTT 35.2 H (25.6-32.8) SEC Sodium (136-145) mmol/L Potassium (3.5-5.1) mmol/L Chloride (98-107) mmol/L Carbon Dioxide (21-32) mmol/L Anion Gap (10-20) mmol/L BUN (7-18) mg/dL Creatinine (0.55-1.02) mg/dL Est Cr Clr Drug Dosing Estimated GFR (MDRD) Glucose (74-106) mg/dL Calcium (8.5-10.1) mg/dL Corrected Calcium (8.5-10.1) mg/dL Total Bilirubin (0.2-1.0) mg/dL AST (15-37) U/L ALT (14-59) U/L Alkaline Phosphatase (46-116) U/L Total Protein (6.4-8.2) g/dL Albumin (3.4-5.0) g/dL Globulin Albumin/Globulin Ratio SARS CoV-2 RNA Rapid ASHLYN Negative (NEGATIVE) 09/29/20 Range/Units 06:30 WBC (4.0-10.0) x10^3/uL RBC (4.00-5.50) x10^6/uL Hgb (12.0-16.0) g/dL Hct (33.0-47.0) % MCV (78.0-93.0) fL MCH (26.0-32.0) pg MCHC (32.0-36.0) g/dL RDW Coeff of Radha (10.0-15.0) % Plt Count (130-400) x10^3/uL Neut % (Auto) (50.0-80.0) % Lymph % (Auto) (25.0-50.0) % Cochran % (Auto) (2.0-11.0) % Eos % (Auto) (0.0-4.0) % Baso % (Auto) (0.2-1.2) % PT (9.5-12.3) SEC INR (2.0-3.5) APTT (25.6-32.8) SEC Sodium 137 (136-145) mmol/L Potassium 3.7 (3.5-5.1) mmol/L Chloride 101 (98-107) mmol/L Carbon Dioxide 29 (21-32) mmol/L Anion Gap 10.7 (10-20) mmol/L BUN 13 (7-18) mg/dL Creatinine 0.8 (0.55-1.02) mg/dL Est Cr Clr Drug Dosing 47.62 Estimated GFR (MDRD) > 60 Glucose 80 (74-106) mg/dL Calcium 7.7 L (8.5-10.1) mg/dL Corrected Calcium 8.02 L (8.5-10.1) mg/dL Total Bilirubin 0.7 (0.2-1.0) mg/dL AST 20 (15-37) U/L ALT 22 (14-59) U/L Alkaline Phosphatase 75 (46-116) U/L Total Protein 6.5 (6.4-8.2) g/dL Albumin 3.6 (3.4-5.0) g/dL Globulin 2.9 Albumin/Globulin Ratio 1.24 SARS CoV-2 RNA Rapid ASHLYN (NEGATIVE) Med Orders - Current: Current Medications Albuterol (Proventil Neb Soln) 2.5 mg NEB Q4HRRT PRN PRN Reason: Shortness of Breath Hydromorphone HCl (Dilaudid) 1 mg IVPUSH Q2H PRN PRN Reason: Pain (severe 7-10) Last Admin: 09/29/20 10:55 Dose: 1 mg Documented by: Sodium Chloride (Normal Saline) 1,000 mls @ 125 mls/hr IV ASDIRECTED BEKA Last Admin: 09/29/20 00:27 Dose: 125 mls/hr Documented by: Ondansetron HCl (Zofran) 4 mg IV Q4H PRN PRN Reason: Nausea/Vomiting Sodium Chloride (Saline Flush) 10 ml FLUSH ASDIRECTED PRN PRN Reason: Keep Vein Open Last Admin: 09/28/20 21:54 Dose: 10 ml Documented by: Discontinued Medications Albuterol (Proventil Neb Soln) Confirm Administered Dose 2.5 mg .ROUTE .STK-MED ONE Stop: 09/29/20 08:01 Last Admin: 09/29/20 07:55 Dose: 2.5 mg Documented by: Hydromorphone HCl (Dilaudid) 1 mg IV ONETIME ONE Stop: 09/28/20 21:44 Last Admin: 09/28/20 21:55 Dose: 1 mg Documented by: Hydromorphone HCl (Dilaudid) 0.5 mg IVPUSH Q2H PRN PRN Reason: Pain (severe 7-10) Last Admin: 09/29/20 04:14 Dose: 0.5 mg Documented by: Morphine Sulfate (Morphine) 4 mg IVPUSH ONETIME ONE Stop: 09/28/20 20:42 Last Admin: 09/28/20 20:47 Dose: 4 mg Documented by: Ondansetron HCl (Zofran) 4 mg IVPUSH ONETIME ONE Stop: 09/28/20 20:42 Last Admin: 09/28/20 20:47 Dose: 4 mg Documented by: - Exam General: Reports: Alert, Oriented HEENT: Reports: Pupils Equal, Pupils Reactive, EOMI, Mucous Membr. Moist/[place] Neck: Reports: Supple Lungs: Reports: Normal Respiratory Effort, Crackles Cardiovascular: Reports: Regular Rate, Regular Rhythm GI/Abdominal Exam: Normal Bowel Sounds, Soft, Non-Tender (Female) Exam: Deferred Back Exam: Reports: Normal Inspection Extremities: Normal Inspection, No Pedal Edema, Normal Capillary Refill, Other (tenderness noted over the left hip) Skin: Reports: Warm, Dry, Intact Neurological: Reports: No New Focal Deficit Psy/Mental Status: Reports: Alert, Normal Affect, Normal Mood
== END 2020-09-29 13:25 | disposition short-term general hospital (02) ==
LOC: VM.ED 20:32 → VM.MS 22:41
PROVIDERS: ADMIT Nurse Practitioner; ATTEND Nurse Practitioner
DX: S72.002A Fracture of unspecified part of neck of left femur, initial encounter for closed fracture (principal); I48.91 Unspecified atrial fibrillation; I25.10 Atherosclerotic heart disease of native coronary artery without angina pectoris; E78.00 Pure hypercholesterolemia, unspecified; F32.9 Major depressive disorder, single episode, unspecified; E03.9 Hypothyroidism, unspecified; Z79.890 Hormone replacement therapy; Z20.828 Contact with and (suspected) exposure to other viral communicable diseases; Z88.0 Allergy status to penicillin; Z88.2 Allergy status to sulfonamides; Z88.8 Allergy status to other drugs, medicaments and biological substances; Z79.899 Other long term (current) drug therapy; Z79.82 Long term (current) use of aspirin; W19.XXXA Unspecified fall, initial encounter; Y92.009 Unspecified place in unspecified non-institutional (private) residence as the place of occurrence of the external cause
CPT/HCPCS: 36415; 51702; 73502; 80053; 85025; 85610; 85730; 94640; 94760; 96374; 96375; 96376; 99217; 99220; 99285; G0378; J1170; J2270; J2405; J7030; U0002; J7613-GY

== ENCOUNTER 2021-06-03 13:09 | Emergency (ER) | payer MEDICARE, BC ==
[2021-06-03] MEDS ORDERED: Ketorolac 30 MG/ML SDV IM ONE (14:41)
[2021-06-03] MEDS ORDERED: Take Home: Ketorolac 10 MG Tab, 4 Tab Pack PO ONE (14:44)
--- NOTE | 2021-06-03 14:47 | EDM.PDOC ---
ED HPI GENERAL MEDICAL PROBLEM - General Chief Complaint: General Stated Complaint: UPPER BACK PAIN Time Seen by Provider: 06/03/21 14:35 Source of Information: Reports: Patient History Limitations: Reports: No Limitations - History of Present Illness INITIAL COMMENTS - FREE TEXT/NARRATIVE: Patient comes into the emergency department with complaints of back pain. Patient states that she has been doctoring for a back injury of unknown etiology. It does show on a CT scan that she does have some compression injury they are recommending an MRI however she has not scheduled up on that. She states that over the course the last 24 to 48 hours she is increase in amount of pain. She is been using compression to the The back region however the pain is still prevalent.Patient denies having any new injury or trauma to that region. Patient states that she has good range of motion and CMS denies any chest pain, shortness of breath, dizziness, lightheadedness, blurred vision, genitourinary concerns, or abdominal pain. Patient states that it is localized to the back region of where the injury has been noted. Patient would like some pain medication to help her get through until she can get back to her primary care doctor. Onset: Gradual Quality: Reports: Other Severity: Mild - Related Data Allergies Allergy/AdvReac Type Severity Reaction Status Date / Time naproxen [From Aleve] Allergy Cannot Verified 09/28/20 20:51 Remember Penicillins Allergy Rash Verified 09/28/20 20:51 Sulfa (Sulfonamide Allergy Cannot Verified 09/28/20 20:51 Antibiotics) Remember Home Meds: Home Meds Albuterol [Ventolin HFA] 2 puff INH Q4H 02/22/18 [History] Chlorpheniramine Maleate [Chlor-Trimeton] 4 mg PO Q6HR PRN 02/22/18 [History] Dabigatran Etexilate Mesylate [Pradaxa] 1 cap PO BID 02/22/18 [History] Levothyroxine 150 mcg PO ACBREAKFAST 02/22/18 [History] Lisinopril 1 tab PO DAILY 02/22/18 [History] Metoprolol Tartrate 1 tab PO BID 02/22/18 [History] Multivitamins [Tab-A-Mike] 1 tab PO DAILY 02/22/18 [History] Omeprazole 1 cap PO DAILY 02/22/18 [History] Simvastatin [Zocor] 10 mg PO BEDTIME 02/22/18 [History] Aspirin 81 mg PO WITHBREAKFAST #90 tab.chew 10/06/18 [Rx] ALPRAZolam [Xanax] 0.25 mg PO BID PRN 09/28/20 [History] Acetaminophen [Tylenol] 650 mg PO Q4H PRN 09/28/20 [History] Calcium Carbonate [Tums] 500 mg PO QID PRN 09/28/20 [History] Cyanocobalamin (Vitamin B-12) [Vitamin B-12] 1,000 mcg PO DAILY 09/28/20 [History] Escitalopram Oxalate 1 tab PO DAILY 09/28/20 [History] Furosemide 40 mg PO DAILY 09/28/20 [History] Nitroglycerin [Nitrostat] 0.4 mg SL ASDIRECTED PRN 09/28/20 [History] Azelastine HCl 1 spray NASBOTH Q12HR 09/29/20 [History] Non-Formulary Medication [NF Drug] 1 puff INH DAILY 09/29/20 [History] Past Medical History HEENT History: Reports: Allergic Rhinitis Cardiovascular History: Reports: Afib, CAD, Heart Valve Replacement, High Cholesterol, Other (See Below) Other Cardiovascular History: Valvular heart disease Respiratory History: Reports: COPD Gastrointestinal History: Reports: Cholelithiasis, GERD, Other (See Below) Other Gastrointestinal History: dysphagia, rectocele Genitourinary History: Reports: Other (See Below) Other Genitourinary History: malignant neoplasm of bladder unspecified Musculoskeletal History: Reports: Other (See Below) Other Musculoskeletal History: Arthralgia of foot Psychiatric History: Reports: Depression Endocrine/Metabolic History: Reports: Hypothyroidism Hematologic History: Reports: B12 Deficiency Oncologic (Cancer) History: Reports: Bladder, Other (See Below) Other Oncologic History: Anal skin - Past Surgical History Oncologic Surgical History: Reports: Other (See Below) Other Oncologic Surgeries/Procedures: 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 Social & Family History - Family History HEENT: Reports: None Cardiac: Reports: Hypertension, Other (See Below) Respiratory: Reports: None GI: Reports: Hiatal Hernia : Reports: None OBGYN: Reports: None Musculoskeletal: Reports: None Neurological: Reports: None Psychiatric: Reports: None Endocrine/Metabolic: Reports: None Hematologic: Reports: None Immunologic: Reports: None Dermatologic: Reports: None Oncologic: Reports: Other (See Below) - Caffeine Use Caffeine Use: Reports: Coffee, Soda ED ROS GENERAL - Review of Systems Review Of Systems: Comprehensive ROS is negative, except as noted in HPI. Constitutional: Reports: No Symptoms HEENT: Reports: No Symptoms Respiratory: Reports: No Symptoms Cardiovascular: Reports: No Symptoms Endocrine: Reports: No Symptoms GI/Abdominal: Reports: No Symptoms : Reports: No Symptoms Musculoskeletal: Reports: Back Pain Skin: Reports: No Symptoms Neurological: Reports: No Symptoms Psychiatric: Reports: No Symptoms Hematologic/Lymphatic: Reports: No Symptoms Immunologic: Reports: No Symptoms ED EXAM, GENERAL - Physical Exam Exam: See Below Exam Limited By: No Limitations General Appearance: Alert, WD/WN, No Apparent Distress Head: Atraumatic, Normocephalic Neck: Normal Inspection, Supple, Non-Tender, Full Range of Motion Respiratory/Chest: No Respiratory Distress, No Accessory Muscle Use, Chest Non- Tender Cardiovascular: Normal Peripheral Pulses, Regular Rate, Rhythm, No Edema Back Exam: Normal Inspection, Full Range of Motion, Vertebral Tenderness Extremities: Normal Inspection, Normal Range of Motion, Non-Tender, No Pedal Edema, Normal Capillary Refill Neurological: Alert, Oriented, Normal Cognition Psychiatric: Normal Affect, Normal Mood Skin Exam: Warm, Dry, Intact, Normal Color Course - Orders/Labs/Meds Orders: Active Orders 24 hr Category Date Time Status Ketorolac [Toradol] Med 06/03/21 14:41 Once 30 mg IM ONETIME ONE Medication Orders Ketorolac Tromethamine (Ketorolac 30 Mg/Ml Sdv) 30 mg IM ONETIME ONE Stop: 06/03/21 14:42 Meds: Medications Generic Name Dose Route Start Last Admin Trade Name Mynorq PRN Reason Stop Dose Admin Ketorolac Tromethamine 30 mg 06/03/21 14:41 Ketorolac 30 Mg/Ml Sdv IM 06/03/21 14:42 ONETIME ONE Departure - Departure Time of Disposition: 15:00 Disposition: Home, Self-Care 01 Condition: Good Clinical Impression: Back pain Qualifiers: Back pain location: thoracic back pain Chronicity: acute Back pain laterality: unspecified Qualified Code(s): M54.6 - Pain in thoracic spine - Discharge Information *PRESCRIPTION DRUG MONITORING PROGRAM REVIEWED*: Not Applicable *COPY OF PRESCRIPTION DRUG MONITORING REPORT IN PATIENT TIFFANIE: Not Applicable Instructions: Acute Back Pain, Adult Forms: ED Department Discharge Additional Instructions: 1. Rest 2. can take the toradol for severe pain 3. Can use tylenol as needed for pain and discomfort 4. Diet as tolerated 5. Activity as tolerated 6. Elevated the injured area above the level of the heart to decrease swelling and discomfort. 7. Use ice 3-4 times a day at 20-minute intervals to help with any swelling and discomfort 8. Follow-up with your primary care provider symptoms continue or to progress 9. Follow with any questions or concerns - My Orders Last 24 Hours: My Active Orders 06/03/21 14:41 Ketorolac [Toradol] 30 mg IM ONETIME ONE - Assessment/Plan Last 24 Hours: My Active Orders 06/03/21 14:41 Ketorolac [Toradol] 30 mg IM ONETIME ONE
== END 2021-06-03 15:10 | disposition home or self-care (01) ==
LOC: VM.ED 13:09
DX: M54.6 Pain in thoracic spine (principal); I48.91 Unspecified atrial fibrillation; I25.10 Atherosclerotic heart disease of native coronary artery without angina pectoris; E78.00 Pure hypercholesterolemia, unspecified; J44.9 Chronic obstructive pulmonary disease, unspecified; K21.9 Gastro-esophageal reflux disease without esophagitis; E03.9 Hypothyroidism, unspecified; Z88.0 Allergy status to penicillin; Z88.6 Allergy status to analgesic agent; Z88.2 Allergy status to sulfonamides; Z79.82 Long term (current) use of aspirin; Z79.899 Other long term (current) drug therapy
CPT/HCPCS: 96372; 99283; A9270-GY; J1885